=== PATIENT | male | born 1985 | race Caucasian/White ===

== ENCOUNTER 2022-01-03 14:00 | Emergency (ER) | payer BC, SELFPAY ==
--- NOTE | ~2022-01-03 | XR_ITS ---
EXAMINATION: XR foot LT min 3V DATE: 01/03/2022 14:27 INDICATION: Left foot pain. Injury. TECHNIQUE: 4 views of left foot were obtained. COMPARISON: None. FINDINGS: Bone alignment is normal. No fracture. There is mild osteoarthritis of first metatarsophala ngeal joint and first interphalangeal joint. There is an enthesophyte at dorsal aspect of navicular. IMPRESSION: 1. Mild polyarticular osteoarthritis. Reviewed, dictated and finalized at location A.
[2022-01-03 14:06] VITALS: BP 135/85; PULSE 92; RESP 16; TEMP 36.6; O2SAT 98
--- NOTE | 2022-01-03 14:10 | ED.LOWEXIN ---
HPI - Extremity Injury (Lower) General Chief Complaint: Extremity Injury, Lower Stated Complaint: left foot injury Time Seen by Provider: 01/03/22 14:10 Source: patient and RN notes reviewed History of Present Illness HPI Narrative: Patient is a 36-year-old male who presents the urgent care with complaints of left foot pain. Patient states at 11 PM he slid down the steps in his socks last night and has since then had pain to the bottom of the foot. Patient has taken Tylenol. No other acute injuries. No acute distress noted. Patient aware of the plan of care. Some parts of this dictation were generated by voice recognition software and may contain typographical and/or grammatical inaccuracies. Related Data Home Medications Medication Instructions Recorded Confirmed Daily Support Vitamin 01/03/22 acyclovir 400 mg PO DAILY 01/03/22 01/03/22 hydroxyzine pamoate 25 mg PO DAILY 01/03/22 01/03/22 paroxetine HCl [Paxil] 10 mg PO QAM 01/03/22 01/03/22 Allergies Allergy/AdvReac Type Severity Reaction Status Date / Time Penicillins Allergy Unknown Verified 01/03/22 14:18 Review of Systems Review of Systems: CONSTITUTIONAL: Denies fever, chills, or sweats. EYES: Denies visual changes, redness, or discharge. ENT: Denies rhinorrhea, congestion, sore throat, or otalgia. CARDIOVASCULAR: Denies chest pain, palpitations, or edema. RESPIRATORY: Denies cough or dyspnea. GASTROINTESTINAL: Denies abdominal pain, nausea, vomiting, or diarrhea. GENITOURINARY: Denies dysuria or hematuria. SKIN: Denies rash or itching. MUSCULOSKELETAL: Reports of left foot pain NEUROLOGIC: Denies headache, numbness, or weakness. All other systems reviewed are negative, except as documented in HPI. PMFSH Comments At the time of my signature, I reviewed and agree with the nursing past medical, surgical, social, and family history. There is no relevant family history pertinent to the patient complaint. Exam Narrative: GENERAL: This is a well-nourished, well-developed patient, in no apparent distress. HEAD: normocephalic, atraumatic. EYES: PERRL. Sclera clear/white. Vision is grossly intact. EARS: External ears normal NOSE: External nose normal with no obvious nasal discharge, nares without redness, no rhinorrhea. THROAT: Mucous membranes moist NECK: Neck supple CARDIOVASCULAR: Regular rate and rhythm without murmurs, gallops, or rubs. RESPIRATORY: Clear to auscultation. Breath sounds equal bilaterally. No wheezes, rales, or rhonchi. SKIN: warm, intact with no suspicious lesions or rash, good texture and turgor. NEURO: awake, alert, and oriented to person, place and time. There were no obvious focal neurologic abnormalities. EXTREMITIES: No obvious deformity noted to the left lower extremity. Positive strong left pedal pulse with capillary refill less than 2 seconds. No ecchymosis, erythema or edema noted to the left foot. Range of motion to left lower extremity within normal limits. Course Course Level of Care: Express Care Visit Vital Signs Vital signs: Vital Signs Temperature 97.9 F 01/03/22 14:06 Pulse Rate 92 01/03/22 14:06 Respiratory Rate 16 01/03/22 14:06 Blood Pressure 135/85 01/03/22 14:06 Pulse Oximetry 98 01/03/22 14:06 Temperature 97.9 F 01/03/22 14:06 Pulse Rate 92 01/03/22 14:06 Respiratory Rate 16 01/03/22 14:06 Blood Pressure 135/85 01/03/22 14:06 Pulse Oximetry 98 01/03/22 14:06 Reviewed MDM - Extremity Injury (Lower) MDM Narrative Medical decision making narrative: Reviewed x-ray results with the patient. Aware that there is no acute abnormality. There is notable osteoarthritis. Advised the patient to use Tylenol/ibuprofen and elevate with ice for pain and discomfort. Wear supportive shoe. Avoid any strenuous activity for the next 2 to 5 days or until activity as tolerated as normal. Follow-up with your PCP within 2 to 5 days or for worsening symptoms or failure to improve. Differenti
== END 2022-01-03 14:47 | disposition home or self-care (01) ==
PROVIDERS: Emergency Provider Nurse Practitioner Family; PCP Internal Medicine
DX: M79.672 Pain in left foot (principal); M19.072 Primary osteoarthritis, left ankle and foot; F41.9 Anxiety disorder, unspecified; Z90.81 Acquired absence of spleen
CPT/HCPCS: 73630; 99213; G0463